=== PATIENT | female | born 1995 | race American Indian/Alaskan Native ===

== ENCOUNTER 2017-01-08 14:52 | Emergency (ER) | payer MEDICARE ==
[2017-01-08 15:31] LABS: Bacteria,Urine 2+ /HPF (Negative); Bilirubin,Urine NEG (Negative); Blood,Urine NEG (Negative); Ketones,Urine NEG (Negative); Leukocyte Esterase,Urine MOD (Negative); Mucus,Urine FEW /HPF; Nitrite,Urine POS (Negative); Protein,Urine <15 mg/dL mg/dL (Negative)
[2017-01-08 15:47] LABS: Basophils % (Auto) 0.9 % (0.0-1.8); Eosinophils % (Auto) 1.2 % (0.0-4.3); Hematocrit 39.7 % (30.3-42.9); Hemoglobin 13.3 gm/dl (10.1-14.3); Mean Corpuscular HGB Conc 34 % (30-34); Mean Corpuscular Hemoglobin 29 pg (28-32); Mean Corpuscular Volume 88 fl (79-97); Platelet Count 222 K/mm3 (140-440); Red Blood Count 4.54 M/mm3 (3.65-5.03); Red Cell Distribution Width 13.9 % (13.2-15.2)
[2017-01-08 16:08] LABS: Alanine Aminotransferase 11 units/L (7-56); Albumin 4.2 g/dL (3.9-5); Albumin/Globulin Ratio 1.4 %; Alkaline Phosphatase 120 units/L (35-129); Anion Gap 19 mmol/L; Blood Urea Nitrogen 11 mg/dL (7-17); Calcium 8.9 mg/dL (8.4-10.2); Carbon Dioxide 25 mmol/L (22-30); Chloride 103.4 mmol/L (98-107); Glucose 101 mg/dL (65-100); Lipase 25 units/L (13-60); Potassium 4.1 mmol/L (3.6-5.0); Sodium 143 mmol/L (137-145); Total Protein 7.1 g/dL (6.3-8.2)
[2017-01-08 20:34] VITALS: BP 120/77
[2017-01-08] MEDS ORDERED: XYLOCAINE 1% MPF 5 mL INFILTRATI ONE (21:00)
[2017-01-08] MEDS ORDERED: ROCEPHIN IM STA (21:00)
--- NOTE | 2017-01-08 21:02 | Emergency Department Report ---
ED Abdominal Pain HPI - General Chief Complaint: Abdominal Pain Stated Complaint: PREG TEST / ABD PAIN Time Seen by Provider: 01/08/17 20:39 Source: patient Mode of arrival: Ambulatory Limitations: No Limitations - History of Present Illness Initial Comments: Patient reports that she has not had a menstrual cycle since September 2016. She says that she home test and the result was negative. Patient here to confirm if she is .Having urinary frequency and feeling hot and faint feeling. Denies any nausea or vomiting. Denies any fever. The pain is cramping and it is located on the left lower abdomen. She denies any vaginal bleeding or discharge. She denies any back pain. She reports that she is having some burning in her urine. Denies any diarrhea. She reports urine at times MD Complaint: abdominal pain Onset/Timin -: days(s) Location: LLQ Radiation: none Migration to: no migration Severity: mild Severity scale (0 -10): 2 Quality: cramping Consistency: intermittent Improves With: nothing Worsens With: nothing Context: other (patient suspects that she is ) Associated Symptoms: nausea, dysuria. denies: hematochezia, hematuria, anorexia , syncope, other, melena, vomiting, diarrhea, fever, chills, constipation Treatments Prior to Arrival: other (none) - Related Data LMP Date: 09/02/16 Previous Rx's Medication Instructions Recorded Last Taken Type Nitrofurantoin [place]/M-Cryst 100 mg PO Q12HR #14 capsule 01/08/17 Unknown Rx [Macrobid CAP] Allergies Allergy/AdvReac Type Severity Reaction Status Date / Time No Known Allergies Allergy Unverified 01/08/17 15:02 ED Review of Systems ROS: Stated complaint: PREG TEST / ABD PAIN Other details as noted in HPI Comment: All other systems reviewed and negative Constitutional: denies: chills, fever ENT: denies: throat pain Respiratory: no symptoms reported Cardiovascular: denies: chest pain, palpitations, edema, syncope Gastrointestinal: denies: abdominal pain, nausea, vomiting, diarrhea Genitourinary: dysuria, frequency, abnormal menses. denies: urgency, hematuria , discharge, dyspareunia Musculoskeletal: denies: back pain, arthralgia, myalgia Skin: denies: rash Neurological: denies: headache, weakness, numbness, paresthesias, confusion, abnormal gait, vertigo ED Past Medical Hx - Past Medical History Previous Medical History?: Yes - Surgical History Past Surgical History?: Yes Additional Surgical History: x 1 - Family History Family history: no significant - Social History Smoking Status: Current Some Day Smoker Substance Use Type: Alcohol, Marijuana, Non Opiate Pain - Medications Home Medications: Home Medications Medication Instructions Recorded Confirmed Last Taken Type Nitrofurantoin [place]/M-Cryst 100 mg PO Q12HR #14 capsule 01/08/17 Unknown Rx [Macrobid CAP] ED Physical Exam - General Limitations: No Limitations General appearance: alert, in no apparent distress - Head Head exam: Present: atraumatic, normocephalic, normal inspection - Eye Eye exam: Present: normal appearance, PERRL, EOMI Pupils: Present: normal accommodation - ENT ENT exam: Present: normal exam, normal orophraynx, mucous membranes moist - Neck Neck exam: Present: normal inspection, full ROM. Absent: tenderness, meningismus, lymphadenopathy - Respiratory Respiratory exam: Present: normal lung sounds bilaterally. Absent: respiratory distress, chest wall tenderness - Cardiovascular Cardiovascular Exam: Present: normal rhythm, tachycardia, normal heart sounds - GI/Abdominal GI/Abdominal exam: Present: soft, normal bowel sounds. Absent: distended, tenderness, guarding, rebound, rigid - Extremities Exam Extremities exam: Present: normal inspection, full ROM, normal capillary refill. Absent: tenderness, pedal edema, joint swelling, calf tenderness - Back Exam Back exam: Present: normal inspection, full ROM. Absent: tenderness, CVA tenderness (R), CVA tenderness (L), muscle spasm, paraspinal tenderness, vertebral tenderness, rash noted - Neurological Exam Neurological exam: Present: alert, oriented X3, normal gait - Psychiatric Psychiatric exam: Present: normal affect, normal mood - Skin Skin exam: Present: warm, dry, intact, normal color. Absent: rash ED Course Vital Signs 01/08/17 01/08/17 15:02 20:32 Temperature 98.1 F Pulse Rate 104 H 74 Respiratory 20 18 Rate Blood Pressure 140/90 Blood Pressure 120/77 [Left] O2 Sat by Pulse 99 98 Oximetry - Reevaluation(s) Reevaluation #1: 01/08/17 21:26 Patient received Rocephin 1 g IM for urinary tract infection in the emergency room and tolerated well. She is able to tolerated fluids without any difficulty 01/08/17 21:26 ED Medical Decision Making - Lab Data Result diagrams: 01/08/17 15:29 01/08/17 15:29 Lab Results 01/08/17 01/08/17 01/08/17 Range/Units 15:00 15:29 15:29 WBC 6.0 (4.5-11.0) K/mm3 RBC 4.54 (3.65-5.03) M/mm3 Hgb 13.3 (10.1-14.3) gm/dl Hct 39.7 (30.3-42.9) % MCV 88 (79-97) fl MCH 29 (28-32) pg MCHC 34 (30-34) % RDW 13.9 (13.2-15.2) % Plt Count 222 (140-440) K/mm3 Lymph % (Auto) 32.6 (13.4-35.0) % [place] % (Auto) 9.8 H (0.0-7.3) % Eos % (Auto) 1.2 (0.0-4.3) % Baso % (Auto) 0.9 (0.0-1.8) % Lymph # 2.0 (1.2-5.4) K/mm3 Eaton # 0.6 (0.0-0.8) K/mm3 Eos # 0.1 (0.0-0.4) K/mm3 Baso # 0.1 (0.0-0.1) K/mm3 Seg Neutrophils % 55.5 (40.0-70.0) % Seg Neutrophils # 3.3 (1.8-7.7) K/mm3 Sodium 143 (137-145) mmol/L Potassium 4.1 (3.6-5.0) mmol/L Chloride 103.4 (98-107) mmol/L Carbon Dioxide 25 (22-30) mmol/L Anion Gap 19 mmol/L BUN 11 (7-17) mg/dL Creatinine 0.5 L (0.7-1.2) mg/dL Estimated GFR > 60 ml/min BUN/Creatinine Ratio 22.00 % Glucose 101 H (65-100) mg/dL Calcium 8.9 (8.4-10.2) mg/dL Total Bilirubin 0.60 (0.1-1.2) mg/dL AST 14 (5-40) units/L ALT 11 (7-56) units/L Alkaline Phosphatase 120 (35-129) units/L Total Protein 7.1 (6.3-8.2) g/dL Albumin 4.2 (3.9-5) g/dL Albumin/Globulin Ratio 1.4 % Lipase 25 (13-60) units/L HCG, Quant (0-4) mIU/mL Urine Color Yellow (Yellow) Urine Turbidity Clear (Clear) Urine pH 7.0 (5.0-7.0) Ur Specific [place] 1.016 (1.003-1.030) Urine Protein <15 mg/dl (Negative) mg/dL Urine Glucose (UA) Neg (Negative) mg/dL Urine Ketones Neg (Negative) mg/dL Urine Blood Neg (Negative) Urine Nitrite Pos (Negative) Urine Bilirubin Neg (Negative) Urine Urobilinogen 2.0 (<2.0) mg/dL Ur Leukocyte Esterase Mod (Negative) Urine WBC (Auto) 6.0 (0.0-6.0) /HPF Urine RBC (Auto) 2.0 (0.0-6.0) /HPF U Epithel Cells (Auto) 1.0 (0-13.0) /HPF Urine Bacteria (Auto) 2+ (Negative) /HPF Urine Mucus Few /HPF 01/08/17 Range/Units 15:29 WBC (4.5-11.0) K/mm3 RBC (3.65-5.03) M/mm3 Hgb (10.1-14.3) gm/dl Hct (30.3-42.9) % MCV (79-97) fl MCH (28-32) pg MCHC (30-34) % RDW (13.2-15.2) % Plt Count (140-440) K/mm3 Lymph % (Auto) (13.4-35.0) % E[place] % (Auto) (0.0-7.3) % Eos % (Auto) (0.0-4.3) % Baso % (Auto) (0.0-1.8) % Lymph # (1.2-5.4) K/mm3 [place] # (0.0-0.8) K/mm3 Eos # (0.0-0.4) K/mm3 Baso # (0.0-0.1) K/mm3 Seg Neutrophils % (40.0-70.0) % Seg Neutrophils # (1.8-7.7) K/mm3 Sodium (137-145) mmol/L Potassium (3.6-5.0) mmol/L Chloride (98-107) mmol/L Carbon Dioxide (22-30) mmol/L Anion Gap mmol/L BUN (7-17) mg/dL Creatinine (0.7-1.2) mg/dL Estimated GFR ml/min BUN/Creatinine Ratio % Glucose (65-100) mg/dL Calcium (8.4-10.2) mg/dL Total Bilirubin (0.1-1.2) mg/dL AST (5-40) units/L ALT (7-56) units/L Alkaline Phosphatase (35-129) units/L Total Protein (6.3-8.2) g/dL Albumin (3.9-5) g/dL Albumin/Globulin Ratio % Lipase (13-60) units/L HCG, Quant < 2 (0-4) mIU/mL Urine Color (Yellow) Urine Turbidity (Clear) Urine pH (5.0-7.0) Ur Specific [place] (1.003-1.030) Urine Protein (Negative) mg/dL Urine Glucose (UA) (Negative) mg/dL Urine Ketones (Negative) mg/dL Urine Blood (Negative) Urine Nitrite (Negative) Urine Bilirubin (Negative) Urine Urobilinogen (<2.0) mg/dL Ur Leukocyte Esterase (Negative) Urine WBC (Auto) (0.0-6.0) /HPF Urine RBC (Auto) (0.0-6.0) /HPF U Epithel Cells (Auto) (0-13.0) /HPF Urine Bacteria (Auto) (Negative) /HPF Urine Mucus /HPF Urine culture pending - Medical Decision Making ED course: Patient here requesting test and also having some urinary symptoms. UA reveals that she has positive nitrites, moderate leukocytes with bacteria. CBC in BMP stable.Lab results and urinalysis with patient and told her that she has a bladder infection she'll need to be on antibiotic. Given Rocephin 1 g IM in the emergency room for urinary tract infection without any adverse reaction. Urine culture sent and pending. I discussed with patient that her blood test was negative and she is having abdominal cramping indicated she has a urinary tract infection. I told her that I'll put her on antibiotic and she needs to take it until it finished and she needs to increase her fluid intake. Understanding the discharge diagnosis and treatment plan and discharged home in stable condition to follow up with her primary care physician in 2-3 days. I also told her that I'll refer her to our [facility] doctor for her abnormal menses. Critical care attestation.: If time is entered above; I have spent that time in minutes in the direct care of this critically ill patient, excluding procedure time. ED Disposition Clinical Impression: Acute cystitis without hematuria, Abnormal menstrual cycle Abdominal pain Qualifiers: Abdominal location: left lower quadrant Qualified Code(s): R10.32 - Left lower quadrant pain Disposition: TO HOME OR SELFCARE Is pt being admited?: No Does the pt Need Aspirin: No Condition: Stable Instructions: Abdominal Pain (ED), Urinary Tract Infection in Women (ED) Additional Instructions: Increase her fluid intake to 2-3 L of fluid per day. Take antibiotic as prescribed. Prescriptions: Nitrofurantoin [place]/M-Cryst [Macrobid CAP] 100 mg PO Q12HR #14 capsule Referrals: PRIMARY CARE [Primary Care Provider] - 2-3 Days [facility] [Outside] - 3-5 Days [facility] [Provider Group] - 3-5 Days Forms: Work/School Release Form(ED)
== END 2017-01-08 21:44 | disposition home or self-care (01) ==
LOC: ED 14:52
DX: N30.00 Acute cystitis without hematuria (principal); R10.32 Left lower quadrant pain; N92.5 Other specified irregular menstruation; F17.200 Nicotine dependence, unspecified, uncomplicated; F12.10 Cannabis abuse, uncomplicated
CPT/HCPCS: 36415; 80053; 81001; 83690; 84702; 85025; 87086; 96372; 99283; J0696

== ENCOUNTER 2017-03-09 10:20 | Emergency (ER) | payer MEDICARE ==
[2017-03-09 11:01] LABS: Basophils % (Auto) 0.3 % (0.0-1.8); Eosinophils % (Auto) 0.4 % (0.0-4.3); Hemoglobin 12.4 gm/dl (10.1-14.3); Mean Corpuscular HGB Conc 33 % (30-34); Mean Corpuscular Hemoglobin 29 pg (28-32); Mean Corpuscular Volume 88 fl (79-97); Platelet Count 252 K/mm3 (140-440); Red Blood Count 4.31 M/mm3 (3.65-5.03); Red Cell Distribution Width 13.6 % (13.2-15.2)
[2017-03-09 11:18] LABS: Anion Gap 20 mmol/L; BUN/Creatinine Ratio 13.33; Blood Urea Nitrogen 8 mg/dL (7-17); Calcium 8.7 mg/dL (8.4-10.2); Carbon Dioxide 25 mmol/L (22-30); Chloride 101.6 mmol/L (98-107); Glucose 132 mg/dL (65-100); Potassium 4.3 mmol/L (3.6-5.0); Sodium 142 mmol/L (137-145)
[2017-03-09 13:04] LABS: Bacteria,Urine 1+ /HPF (Negative); Bilirubin,Urine NEG (Negative); Blood,Urine MOD (Negative); Ketones,Urine NEG (Negative); Leukocyte Esterase,Urine MOD (Negative); Mucus,Urine FEW /HPF; Nitrite,Urine NEG (Negative)
[2017-03-09] MEDS ORDERED: MORPHINE IV ONE (14:42)
[2017-03-09] MEDS ORDERED: ZOFRAN IV ONE (14:42)
[2017-03-09] MEDS ORDERED: ROCEPHIN/NS 1 GM/50 ML 1 GM/50 ML BAG IV ONE (14:43)
[2017-03-09] MEDS ORDERED: NACL 0.9% 1000 ML 1,000 ML IV ONE (14:43)
--- NOTE | 2017-03-09 15:04 | Emergency Department Report ---
ED General Adult HPI - General Chief complaint: Urogenital-Female Stated complaint: BACK PAIN Time Seen by Provider: 03/09/17 13:58 Source: patient Mode of arrival: Ambulatory Limitations: No Limitations - History of Present Illness Initial comments: The patient complains of left flank pain that radiates around to left lower quadrant of the abdomen. She denies history of prior kidney stone. This pain has been associated with intermittent vomiting last several hours. She has had no diarrhea. She's had no signs of GI bleeding. She denies fever or chills. She states that she was here once before and found to have a yeast infection. She does not complain of vaginal discharge. She denies any respiratory problems or cough. She was having active emesis when I went first encounter. She did take Tylenol prior to arrival. -: hour(s) Location: left (flank) Radiation: abdomen Severity scale (0 -10): 0 Quality: aching Consistency: constant Improves with: none Worsens with: none Associated Symptoms: nausea/vomiting Treatments Prior to Arrival: none - Related Data Previous Rx's Medication Instructions Recorded Last Taken Type HYDROcodone/APAP 5-325 [[place] 1 each PO Q6HR PRN #10 tablet 03/09/17 Unknown Rx 5/325] Nitrofurantoin [place]/M-Cryst 100 mg PO Q12HR #14 capsule 03/09/17 Unknown Rx [Macrobid CAP] Ondansetron [Zofran Odt] 4 mg PO Q6H PRN #7 tab.rapdis 03/09/17 Unknown Rx Allergies Allergy/AdvReac Type Severity Reaction Status Date / Time bee venom (honey bee) Allergy Swelling Verified 03/09/17 10:33 wasp venom Allergy Swelling Verified 03/09/17 10:33 ED Review of Systems ROS: Stated complaint: BACK PAIN Other details as noted in HPI Constitutional: denies: chills, fever Eyes: denies: eye pain, eye discharge, vision change ENT: denies: ear pain, throat pain Respiratory: denies: cough, shortness of breath, wheezing Cardiovascular: denies: chest pain, palpitations Endocrine: no symptoms reported Gastrointestinal: as per HPI. denies: diarrhea Genitourinary: as per HPI. denies: urgency, dysuria, discharge Musculoskeletal: as per HPI. denies: joint swelling, arthralgia Skin: denies: rash, lesions Neurological: denies: headache, weakness, paresthesias Psychiatric: denies: anxiety, depression Hematological/Lymphatic: denies: easy bleeding, easy bruising ED Past Medical Hx - Past Medical History Hx Asthma: Yes Additional medical history: OBESITY - Surgical History Additional Surgical History: x 1. T & A - Social History Smoking Status: Never Smoker Substance Use Type: Marijuana - Medications Home Medications: Home Medications Medication Instructions Recorded Confirmed Last Taken Type HYDROcodone/APAP 5-325 [[place] 1 each PO Q6HR PRN #10 tablet 03/09/17 Unknown Rx 5/325] Nitrofurantoin [place]/M-Cryst 100 mg PO Q12HR #14 capsule 03/09/17 Unknown Rx [Macrobid CAP] Ondansetron [Zofran Odt] 4 mg PO Q6H PRN #7 tab.rapdis 03/09/17 Unknown Rx ED Physical Exam - General Limitations: No Limitations General appearance: alert, other (vomiting) - Head Head exam: Present: atraumatic, normocephalic - Eye Eye exam: Present: normal appearance. Absent: scleral icterus - ENT ENT exam: Present: mucous membranes moist - Neck Neck exam: Present: normal inspection - Respiratory Respiratory exam: Present: normal lung sounds bilaterally. Absent: respiratory distress - Cardiovascular Cardiovascular Exam: Present: regular rate, normal rhythm. Absent: systolic murmur, diastolic murmur, rubs, gallop - GI/Abdominal GI/Abdominal exam: Present: soft, normal bowel sounds. Absent: distended, tenderness, guarding, rebound, rigid - Extremities Exam Extremities exam: Present: normal inspection - Back Exam Back exam: Present: normal inspection. Absent: CVA tenderness (R), CVA tenderness (L) - Neurological Exam Neurological exam: Present: alert, oriented X3, CN II-XII intact. Absent: motor sensory deficit - Psychiatric Psychiatric exam: Present: normal affect, normal mood - Skin Skin exam: Present: warm, dry, intact, normal color. Absent: rash ED Course Vital Signs 03/09/17 03/09/17 10:25 15:10 Temperature 98.3 F 99.0 F Pulse Rate 99 H 104 H Respiratory 18 18 Rate Blood Pressure 146/92 Blood Pressure 123/71 [Left] O2 Sat by Pulse 100 98 Oximetry - Reevaluation(s) Reevaluation #1: Patient is now stating that she has somewhat chronic back pain. Her left flank pain has resolved her vomiting has resolved. She feels ready for discharge. Her CT was normal. She is appropriate for outpatient follow-up. The importance of a urine culture has been emphasized and she will be referred. 03/09/17 16:23 ED Medical Decision Making - Lab Data Result diagrams: 03/09/17 10:41 03/09/17 10:41 Critical care attestation.: If time is entered above; I have spent that time in minutes in the direct care of this critically ill patient, excluding procedure time. ED Disposition Clinical Impression: Left flank pain Vomiting Qualifiers: Vomiting type: unspecified Vomiting Intractability: non-intractable Nausea presence: with nausea Qualified Code(s): R11.2 - Nausea with vomiting, unspecified UTI (urinary tract infection) Qualifiers: Urinary tract infection type: site unspecified Hematuria presence: without hematuria Qualified Code(s): N39.0 - Urinary tract infection, site not specified Disposition: TO HOME OR SELFCARE Is pt being admited?: No Does the pt Need Aspirin: No Condition: Stable Instructions: Acute Nausea and Vomiting (ED), Urinary Tract Infection in Women (ED), Back Pain (ED) Additional Instructions: Follow-up on the results of your urine culture that will be ready in 2-3 days. See referral physician. Rx as directed. Return any acute change or worsening symptoms fever vomiting or chills or significant pain. Prescriptions: HYDROcodone/APAP 5-325 [Palis[place] 5/325] 1 each PO Q6HR PRN #10 tablet PRN Reason: Pain Nitrofurantoin [place]/M-Cryst [Macrobid CAP] 100 mg PO Q12HR #14 capsule Ondansetron [Zofran Odt] 4 mg PO Q6H PRN #7 tab.rapdis PRN Reason: Nausea Referrals: PRIMARY CARE, [Primary Care Provider] - 3-5 Days [facility] [Provider Group] - 3-5 Days Time of Disposition: 16:24
--- NOTE | 2017-03-09 15:56 | Cat Scan Report ---
CT of the abdomen and pelvis without contrast. History: Left flank pain and vomiting. Findings: The liver, spleen, pancreas, and gallbladder are unremarkable. The kidneys are normal in size and configuration with no evidence of stones or hydronephrosis. No renal masses are seen. No ureteral stones are identified. There are no pelvic masses or abnormal fluid collections. The uterus and adnexal regions are unremarkable. The appendix is normal. Impression: Normal study.
[2017-03-09 17:27] VITALS: BP 114/64
== END 2017-03-09 17:28 | disposition home or self-care (01) ==
LOC: ED 10:20
DX: R10.32 Left lower quadrant pain (principal); N39.0 Urinary tract infection, site not specified; R11.2 Nausea with vomiting, unspecified; F12.10 Cannabis abuse, uncomplicated; J45.909 Unspecified asthma, uncomplicated; Z91.013 Allergy to seafood; Z91.048 Other nonmedicinal substance allergy status
CPT/HCPCS: 36415; 74176; 80048; 81001; 82962; 84703; 85025; 87076; 87086; 87186; 96365; 96375; 99284; J0696; J2270; J2405; J7030; 96361